=== PATIENT | female | born 1965 | race African-American/Black ===

== ENCOUNTER → 2017-10-16 | Day surgery (SDC) | payer OTHER ==
[~2017-10-16] VITALS: Ht 157.5 cm; Wt 99.8 kg
[~2017-10-16] MED LIST: ENALAPRIL MALEA20 M1 PO; PREVACID30 M1 PO
--- NOTE | 2017-10-16 10:58 | Operative Report ---
Operative/Inv Procedure Report Surgery Date: 10/16/17 Name of Procedure: right shoulder arthroscopic repair Pre-Operative Diagnosis: internal derangement right shoulder Post-Operative Diagnosis: tears of cuff impingement ac arthrosis bicpes tenodonopathy Estimated Blood Loss: scant Surgeon/Raw Juice Weigher: Ramiro RAMIREZ,Justin Cortes/Diogenes Palacios M.D. Anesthesia: block Operative/Procedure Note Note: This is a 42-year-old lady right-hand dominant with right shoulder pain for the past 2 years unresponsive to physical therapy anti-inflammatories activity modifications and injection 2 her MRI is positive she is here for arthroscopic reconstruction she understands the risks and benefits of the procedure Procedure performed Right shoulder arthroscopic subacromial decompression Acromioclavicular arthroplasty Biceps tenodesis Rotator cuff repair Anterior capsulorrhaphy Anesthesia Gen. with block Antibiotics Cleocin 900 mg Complications none Blood loss minimal Past specimens none Drains none Procedure Patient brought to the operating room and placed on the table in the beachchair position and all acral prominences were padded care was taken with the neck special care was taken in positioning because of the patient's large habitus Antibiotics were given bony landmarks were marked on the skin surface a proper timeout was called and surgery was commenced through a posterior portal Biceps tenodesis The biceps was ragged and read in the groove it was pinned and detached from the supraglenoid tubercle went externally opened the groove removed a large amount of tenosynovium electrocoagulated created a socket placed the biceps tendon within an tenodesis here securely using an 8 mm biceps tenodesis for device by [employer] this was bio composite Anterior capsulorrhaphy The 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 Capsulorrhaphy was performed here using multipolar diathermy and the Dyonics device Arthroscopic subacromial decompression The coracoacromial ligament was brought down any by planing acromioplasty was performed using bone instruments for a significant anteromedial hook Acromioclavicular arthroplasty Acromioclavicular arthroplasty was now performed resecting the entire distal aspect of the clavicle the outer 11 mm was taken care was taken to avoid the condyloid trapezoid ligaments Rotator cuff repair Her rotator cuff tear which was visible from below was marked and then we went externally and looked down upon it was at the posterior margin of the supraspinatus where the anterior and middle tubercles of the greater tuberosity come together We used a grasping device to decide on the best strategy for Tear closure and this was an L-shaped tear but was posterior to the usual we therefore placed a medial row anchor using the Ratliff and nephew Q fix device which was a 2.2 mm hole created after burring lightly to punctate bleeding bone for healing The anterior suture was passed through the posterior leaf which was actually the posterior aspect of the supraspinatus we then used the other suture in this anchor set and passed it in a clamshell fashion one anteriorly one posteriorly are 1 was then reintroduced after going over the top of the posterior leaf and tied these down and then did a second row using 4.5 bio push lock by [employer] We were pleased with cuff contact pressures and stability Conclusion all loose chips and bits were removed the portals were closed with clips a dressing was applied and she returned to the recovery area She will be discharged from the ambulatory surgical area to her hotel and return to [facility] where she will follow-up with Dr. Diogenes Palacios Surgery was tolerated very well and she was stable throughout. Justin Rubio M.D. Discharge Disposition: Same Day Admissions
== END ==
LOC: STS 01:31
DX: M75.101 Unspecified rotator cuff tear or rupture of right shoulder, not specified as traumatic (principal); M75.41 Impingement syndrome of right shoulder; M75.21 Bicipital tendinitis, right shoulder; I10 Essential (primary) hypertension; K21.9 Gastro-esophageal reflux disease without esophagitis; M19.90 Unspecified osteoarthritis, unspecified site
CPT/HCPCS: 36415; J0171; J1100; J2250; J2405; J2795